=== PATIENT | female | born 1955 | race African-American/Black ===

== ENCOUNTER 2017-03-05 10:08 | Inpatient (IN) | payer OTHER ==
[~2017-03-05] VITALS: Ht 160 cm; Wt 74.8 kg
[~2017-03-05 10:08] MED LIST: AMLO10TA80 PO; CHLO25TA27 PO; METHIMAZOLE PO; POTA10TA11 PO; SPIR25TA4 PO
[2017-03-05 11:13] LABS: BASOPHILS % 1.4 % (0.0-2.0); HEMATOCRIT. 44.4 % (36.0-48.0); HEMOGLOBIN. 15.2 g/dL (12.0-16.0); LYMPHOCYTES % 21.1 % (20.0-50.0); MEAN CORPUSCULAR HEMOGLOBIN 28.8 pg (28.0-32.0); MEAN CORPUSCULAR VOLUME 84.1 fL (81.0-99.0); MEAN PLATELET VOLUME 9.2 fl (7.4-10.4); MONOCYTES % 8.5 % (2.0-8.0); PLATELET 259 x1000/uL (130-400); RED BLOOD CELL COUNT 5.28 mill/uL (4.2-5.4); RED CELL DISTRIBUTION WIDTH 14.2 % (11.6-14.6)
[2017-03-05 11:27] LABS: CARBON DIOXIDE 28 mEq/L (21-32); CHLORIDE 100 mEq/L (98-107); CREATINE KINASE 83 IU/L (26-192); ETHANOL BLOOD < 10 mg/dL; TROPONIN I < 0.02 ng/mL (0.00-0.04)
[2017-03-05] MEDS ORDERED: POTASSIUM CHLORIDE 20MEQ TABLET SR PO ONE (12:00)
[2017-03-05] MEDS ORDERED: ASPIRIN 81MG TABLET PO ONE (12:00)
[2017-03-05 15:49] LABS: CLARITY URINE CLOUDY (CLEAR); COLOR URINE YELLOW (YELLOW); GLUCOSE URINE NEGATIVE (NEGATIVE); KETONES URINE NEGATIVE (NEGATIVE); LEUKOCYTE ESTERASE URINE NEGATIVE (NEGATIVE); NITRITE URINE NEGATIVE (NEGATIVE); OCCULT BLOOD URINE NEGATIVE (NEGATIVE); PH URINE 7.5 (4.5-8.0); PROTEIN URINE NEGATIVE (NEGATIVE); SPECIFIC GRAVITY URINE 1.013 (1.005-1.030)
[2017-03-05 16:00] VITALS: BP 157/80
[2017-03-05 16:10] LABS: *AMPHETAMINES SCREEN URINE NEGATIVE (NEGATIVE); *BARBITURATES SCREEN URINE NEGATIVE (NEGATIVE); *BENZODIAZEPINES SCREEN URINE NEGATIVE (NEGATIVE); *COCAINE SCREEN URINE NEGATIVE (NEGATIVE); CANNABINOID URINE SCREEN NEGATIVE (NEGATIVE); METHADONE URINE SCREEN NEGATIVE (NEGATIVE); OPIATES URINE SCREEN NEGATIVE (NEGATIVE); PHENCYCLIDINE URINE SCREEN NEGATIVE (NEGATIVE)
[2017-03-05] MEDS ORDERED: DICL50PO5 PO (16:36)
[2017-03-05] MEDS ORDERED: TRAM50TA3 PO (16:39)
[2017-03-05] MEDS ORDERED: DEXA4TAB PO (16:39)
[2017-03-05] MEDS ORDERED: RIZA10TA26 PO (16:39)
[2017-03-05] MEDS ORDERED: ASPIRIN 325MG EC TABLET PO NR (19:45)
[2017-03-05 20:00] VITALS: BP 141/84
[2017-03-05] MEDS ORDERED: ONDANSETRON HCL 4MG/2ML VIAL IV PRN (22:45)
[2017-03-05] MEDS ORDERED: NA PHOS,M-B/NA PHOS,DI-BA ENEMA 118ML PR PRN (22:45)
[2017-03-05] MEDS ORDERED: DEXTROSE 50% WATER 50ML SYRINGE IV PRN (22:45)
[2017-03-05] MEDS ORDERED: ACETAMINOPHEN 650MG/20.3ML UDC GT PRN (22:45)
[2017-03-05] MEDS ORDERED: HYDROCODONE/ACETAMINOPHEN 5/325MG TABLET PO PRN (22:45)
[2017-03-05] MEDS ORDERED: ACETAMINOPHEN 650MG SUPP PR PRN (22:45)
[2017-03-05] MEDS ORDERED: MAGNESIUM/ALUMINUM HYDROXIDE/SIMETHICONE 30ML UDC PO PRN (22:45)
[2017-03-05] MEDS ORDERED: IPRATROPIUM/ALBUTEROL 0.5-3(2.5)MG/3ML NEB INH PRN (22:45)
[2017-03-05] MEDS ORDERED: CLONIDINE 0.1MG TABLET PO PRN (22:45)
[2017-03-05] MEDS ORDERED: ACETAMINOPHEN 325MG TABLET PO PRN (22:45)
[2017-03-06 00:15] VITALS: BP 127/70
[2017-03-06] MEDS: DIPHENHYDRAMINE 50MG/ML VIAL IV PRN ×2 (00:25→23:53)
[2017-03-06 04:00] VITALS: BP 152/89
[2017-03-06] MEDS: BLOOD SUGAR DIAGNOSTIC STRIP TEST SCH ×4 (05:55→21:00)
[2017-03-06] MEDS: SODIUM CHLORIDE 0.9% INJ 3ML FLUSH IVF SCH ×3 (05:56→21:39)
[2017-03-06 06:04] LABS: GLUCOSE URINE NEGATIVE (NEGATIVE); KETONES URINE NEGATIVE (NEGATIVE); LEUKOCYTE ESTERASE URINE NEGATIVE (NEGATIVE); NITRITE URINE NEGATIVE (NEGATIVE); OCCULT BLOOD URINE NEGATIVE (NEGATIVE); PROTEIN URINE NEGATIVE (NEGATIVE); SPECIFIC GRAVITY URINE 1.018 (1.005-1.030)
[2017-03-06 06:14] LABS: CLARITY URINE CLEAR (CLEAR); COLOR URINE YELLOW (YELLOW)
[2017-03-06 06:19] LABS: *AMPHETAMINES SCREEN URINE NEGATIVE (NEGATIVE); *BARBITURATES SCREEN URINE NEGATIVE (NEGATIVE); *BENZODIAZEPINES SCREEN URINE NEGATIVE (NEGATIVE); *COCAINE SCREEN URINE NEGATIVE (NEGATIVE); CANNABINOID URINE SCREEN NEGATIVE (NEGATIVE); METHADONE URINE SCREEN NEGATIVE (NEGATIVE); OPIATES URINE SCREEN NEGATIVE (NEGATIVE); PHENCYCLIDINE URINE SCREEN NEGATIVE (NEGATIVE)
[2017-03-06] MEDS: INSULIN LISPRO 100 UNITS/ML SUBCUT SCH ×4 (06:28→21:00)
[2017-03-06 07:51] LABS: BASOPHILS % 0.8 % (0.0-2.0); HEMATOCRIT. 40.4 % (36.0-48.0); LYMPHOCYTES % 33.9 % (20.0-50.0); MEAN CORPUSCULAR HEMOGLOBIN 29.2 pg (28.0-32.0); MEAN CORPUSCULAR VOLUME 84.1 fL (81.0-99.0); MEAN PLATELET VOLUME 9.6 fl (7.4-10.4); MONOCYTES % 11.1 % (2.0-8.0); NEUTROPHILS % 50.2 % (40.0-76.0); PLATELET 251 x1000/uL (130-400); RED CELL DISTRIBUTION WIDTH 14.2 % (11.6-14.6)
[2017-03-06 08:00] VITALS: BP 130/70
[2017-03-06 08:22] LABS: CARBON DIOXIDE 28 mEq/L (21-32); CHLORIDE 103 mEq/L (98-107); HDL CHOLESTEROL 69 mg/dL (40-59); LDL CHOLESTEROL 97 mg/dL (5-100)
[2017-03-06] MEDS: ASPIRIN 325MG EC TABLET PO SCH (08:44)
[2017-03-06 12:00] VITALS: BP 147/78
[2017-03-06] MEDS ORDERED: METHIMAZOLE 5MG TABLET PO SCH (12:00)
[2017-03-06] MEDS: POTASSIUM CHLORIDE 20MEQ TABLET SR PO SCH (12:35)
[2017-03-06 16:00] VITALS: BP 138/82
[2017-03-06] MEDS ORDERED: ATOR10TA PO (16:35)
[2017-03-06] MEDS ORDERED: ASPI-867 PO (16:35)
[2017-03-06 20:00] VITALS: BP 137/80
[2017-03-06] MEDS ORDERED: ATORVASTATIN CALCIUM 10MG TABLET PO SCH (21:00)
[2017-03-06] MEDS ORDERED: ZOLPIDEM TARTRATE 5MG TABLET PO PRN (21:45)
[2017-03-07] VITALS: BP 125/75
[2017-03-07 04:00] VITALS: BP 130/74
[2017-03-07] MEDS: SODIUM CHLORIDE 0.9% INJ 3ML FLUSH IVF SCH ×2 (06:03→14:05)
[2017-03-07] MEDS: INSULIN LISPRO 100 UNITS/ML SUBCUT SCH ×2 (06:05→12:15)
[2017-03-07] MEDS: BLOOD SUGAR DIAGNOSTIC STRIP TEST SCH ×2 (06:05→11:45)
[2017-03-07 08:00] VITALS: BP 140/80
[2017-03-07] MEDS: ASPIRIN 325MG EC TABLET PO SCH (11:45)
[2017-03-07] MEDS: POTASSIUM CHLORIDE 20MEQ TABLET SR PO SCH (11:46)
[2017-03-07 12:00] VITALS: BP 154/90
[2017-03-07 16:46] VITALS: BP 148/75
== END 2017-03-07 17:25 | disposition home or self-care (01) | DRG 66 ==
LOC: ER 10:24 → 5WST 12:08 → EDBEDREQ 12:15 → ENRESERV 13:19
PROVIDERS: ADMIT Family Medicine; ATTEND Family Medicine
DX: I63.9 Cerebral infarction, unspecified (principal); I10 Essential (primary) hypertension; E05.90 Thyrotoxicosis, unspecified without thyrotoxic crisis or storm; R73.9 Hyperglycemia, unspecified; E87.6 Hypokalemia; G43.119 Migraine with aura, intractable, without status migrainosus; E78.5 Hyperlipidemia, unspecified; Z82.49 Family history of ischemic heart disease and other diseases of the circulatory system; Z83.3 Family history of diabetes mellitus; Z79.899 Other long term (current) drug therapy; Z82.0 Family history of epilepsy and other diseases of the nervous system
CPT/HCPCS: 36415; 70450; 70551; 71010; 80053; 80061; 80305; 81001; 81003; 82550; 82962; 83036; 83735; 83880; 84443; 84484; 85025; 93005; 93306; 93880; 97162; 99285; G0482; J1200

== ENCOUNTER 2017-03-23 17:22 | Inpatient (IN) | payer OTHER ==
[~2017-03-23] VITALS: Ht 165.1 cm; Wt 80.3 kg
[~2017-03-23 17:22] MED LIST changes: +ASPI-867 PO; +ATOR10TA PO; +DEXA4TAB PO; +DICL50PO5 PO; +RIZA10TA26 PO; -SPIR25TA4 PO; +TRAM50TA3 PO
[2017-03-23 18:18] LABS: BASOPHILS % 0.9 % (0.0-2.0); HEMATOCRIT. 44.7 % (36.0-48.0); HEMOGLOBIN. 15.2 g/dL (12.0-16.0); LYMPHOCYTES % 35.7 % (20.0-50.0); MEAN CORPUSCULAR HEMOGLOBIN 29.1 pg (28.0-32.0); MEAN CORPUSCULAR VOLUME 85.6 fL (81.0-99.0); MEAN PLATELET VOLUME 9.4 fl (7.4-10.4); MONOCYTES % 9.3 % (2.0-8.0); NEUTROPHILS % 50.1 % (40.0-76.0); PLATELET 249 x1000/uL (130-400); RED BLOOD CELL COUNT 5.22 mill/uL (4.2-5.4)
[2017-03-23 18:20] LABS: CHLORIDE 106 mEq/L (98-107); PROTHROMBIN TIME 10.7 sec (9.4-11.6)
[2017-03-23 18:30] LABS: CARBON DIOXIDE 25 mEq/L (21-32); ETHANOL BLOOD < 10 mg/dL; TROPONIN I < 0.02 ng/mL (0.00-0.04)
[2017-03-23 19:18] LABS: CLARITY URINE CLEAR (CLEAR); COLOR URINE YELLOW (YELLOW); GLUCOSE URINE NEGATIVE (NEGATIVE); KETONES URINE NEGATIVE (NEGATIVE); LEUKOCYTE ESTERASE URINE NEGATIVE (NEGATIVE); NITRITE URINE NEGATIVE (NEGATIVE); OCCULT BLOOD URINE NEGATIVE (NEGATIVE); PROTEIN URINE NEGATIVE (NEGATIVE); SPECIFIC GRAVITY URINE 1.012 (1.005-1.030); UROBILINOGEN URINE 0.2 E.U./dL (0.2-1.0)
[2017-03-23 19:30] LABS: *AMPHETAMINES SCREEN URINE NEGATIVE (NEGATIVE); *BARBITURATES SCREEN URINE NEGATIVE (NEGATIVE); *BENZODIAZEPINES SCREEN URINE NEGATIVE (NEGATIVE); *COCAINE SCREEN URINE NEGATIVE (NEGATIVE); CANNABINOID URINE SCREEN NEGATIVE (NEGATIVE); METHADONE URINE SCREEN NEGATIVE (NEGATIVE); OPIATES URINE SCREEN NEGATIVE (NEGATIVE); PHENCYCLIDINE URINE SCREEN NEGATIVE (NEGATIVE)
[2017-03-23] MEDS ORDERED: DIPHENHYDRAMINE 50MG/ML VIAL IV PRN (20:30)
[2017-03-23] MEDS ORDERED: NITROGLYCERIN 0.4MG TABLET SL SL PRN (20:30)
[2017-03-23] MEDS ORDERED: GUAIFENESIN 200MG/10ML SUGAR FREE UDC PO PRN (20:30)
[2017-03-23] MEDS ORDERED: ONDANSETRON HCL 4MG/2ML VIAL IV PRN (20:30)
[2017-03-23] MEDS ORDERED: DOCUSATE SODIUM 100MG CAPSULE PO PRN (20:30)
[2017-03-23] MEDS ORDERED: MAGNESIUM/ALUMINUM HYDROXIDE/SIMETHICONE 30ML UDC PO PRN (20:30)
[2017-03-23] MEDS ORDERED: LORAZEPAM 2MG/ML CPJ IV PRN (20:30)
[2017-03-23] MEDS ORDERED: IPRATROPIUM/ALBUTEROL 0.5-3(2.5)MG/3ML NEB INH PRN (20:30)
[2017-03-23] MEDS ORDERED: CLONIDINE 0.1MG TABLET PO PRN (20:30)
[2017-03-23 20:55] LABS: T4 FREE 0.92 ng/dL (0.76-1.46)
[2017-03-23] MEDS ORDERED: ZOLPIDEM TARTRATE 5MG TABLET PO PRN (21:00)
[2017-03-23] MEDS ORDERED: NA PHOS,M-B/NA PHOS,DI-BA ENEMA 118ML PR PRN (21:00)
[2017-03-23] MEDS: FAMOTIDINE 20MG/2ML VIAL IV SCH (21:00)
[2017-03-23] MEDS ORDERED: MORPHINE SULFATE 2 MG/ML CPJ (NOT FOR IM USE) IV PRN (21:01)
[2017-03-23] MEDS ORDERED: MORPHINE SULFATE 4 MG/ML CPJ (NOT FOR IM USE) IV PRN (21:41)
[2017-03-23 22:42] LABS: TROPONIN I < 0.02 ng/mL (0.00-0.04)
[2017-03-23 22:47] LABS: CREATINE KINASE 115 IU/L (26-192)
[2017-03-24] VITALS (12 sets, daily range): BP systolic 132–174; BP diastolic 76–120
[2017-03-24] MEDS: CLOPIDOGREL 75MG TABLET PO SCH (09:41)
[2017-03-24] MEDS: ENOXAPARIN 40MG/0.4ML SYR SUBCUT SCH (09:44)
[2017-03-24] MEDS: FAMOTIDINE 20MG/2ML VIAL IV SCH ×2 (09:44→20:50)
[2017-03-24 10:35] LABS: CREATINE KINASE 86 IU/L (26-192); CREATINE KINASE MB FRACTION 0.7 ng/mL (0.5-3.6); TROPONIN I < 0.02 ng/mL (0.00-0.04)
[2017-03-24] MEDS: ACETAMINOPHEN 325MG TABLET PO PRN (11:08)
[2017-03-24 14:44] LABS: T4 FREE 0.95 ng/dL (0.76-1.46)
[2017-03-24 15:00] LABS: FOLIC ACID (FOLATE) SERUM > 20.00 ng/mL (>5.38); VITAMIN B12 SERUM 819 pg/mL (211-911)
[2017-03-24] MEDS: TRAMADOL 50MG TABLET PO PRN (18:07)
[2017-03-24] MEDS: ATORVASTATIN CALCIUM 20MG TABLET PO SCH (20:50)
[2017-03-24] MEDS ORDERED: ATORVASTATIN CALCIUM 10MG TABLET PO SCH (21:00)
[2017-03-25] VITALS (14 sets, daily range): BP systolic 106–146; BP diastolic 60–90
[2017-03-25] MEDS: CLOPIDOGREL 75MG TABLET PO SCH (08:15)
[2017-03-25] MEDS: ENOXAPARIN 40MG/0.4ML SYR SUBCUT SCH (08:15)
[2017-03-25] MEDS: TRAMADOL 50MG TABLET PO PRN ×2 (08:16→15:59)
[2017-03-25] MEDS: FAMOTIDINE 20MG/2ML VIAL IV SCH ×2 (08:28→20:32)
[2017-03-25 10:05] LABS: BASOPHILS % 1.2 % (0.0-2.0); EOSINOPHILS % 6.8 % (0.0-5.0); HEMATOCRIT. 42.9 % (36.0-48.0); HEMOGLOBIN. 14.5 g/dL (12.0-16.0); LYMPHOCYTES % 40.3 % (20.0-50.0); MEAN CORPUSCULAR HEMOGLOBIN 29.1 pg (28.0-32.0); MEAN PLATELET VOLUME 9.2 fl (7.4-10.4); NEUTROPHILS % 42.7 % (40.0-76.0); PLATELET 232 x1000/uL (130-400); RED BLOOD CELL COUNT 4.99 mill/uL (4.2-5.4); RED CELL DISTRIBUTION WIDTH 14.1 % (11.6-14.6)
[2017-03-25 10:17] LABS: CARBON DIOXIDE 26 mEq/L (21-32); CHLORIDE 106 mEq/L (98-107)
[2017-03-25] MEDS: ATORVASTATIN CALCIUM 20MG TABLET PO SCH (20:32)
[2017-03-25] MEDS: ACETAMINOPHEN 325MG TABLET PO PRN (22:42)
[2017-03-26] VITALS (9 sets, daily range): BP systolic 116–150; BP diastolic 55–89
[2017-03-26] MEDS: ENOXAPARIN 40MG/0.4ML SYR SUBCUT SCH (09:49)
[2017-03-26] MEDS: FAMOTIDINE 20MG/2ML VIAL IV SCH (09:49)
[2017-03-26] MEDS: CLOPIDOGREL 75MG TABLET PO SCH (09:49)
[2017-03-26] MEDS ORDERED: MORPHINE SULFATE 2 MG/ML CPJ (NOT FOR IM USE) IV PRN (10:15)
[2017-03-29 04:17] LABS: ANTI-CARDIOLIPIN AB IGA < 9 APL U/mL (0-11); ANTI-CARDIOLIPIN AB IGG < 9 GPL U/mL (0-14); ANTI-CARDIOLIPIN AB IGM < 9 MPL U/mL (0-12)
[2017-03-30 06:18] LABS: DILUTE RUSSELL VIPER VENOM TME 32.6 sec (0.0-47.0)
== END 2017-03-26 14:05 | disposition home or self-care (01) | DRG 65 ==
LOC: ER 17:45 → 5EST 18:28 → EDBEDREQ 18:31 → SUPCPDRO 18:59 → ENRESERV 03-24 02:39
PROVIDERS: ADMIT Internal Medicine; ATTEND Internal Medicine
DX: I63.9 Cerebral infarction, unspecified (principal); G81.94 Hemiplegia, unspecified affecting left nondominant side; E05.90 Thyrotoxicosis, unspecified without thyrotoxic crisis or storm; G43.909 Migraine, unspecified, not intractable, without status migrainosus; E78.00 Pure hypercholesterolemia, unspecified; R26.9 Unspecified abnormalities of gait and mobility; I10 Essential (primary) hypertension; Z79.02 Long term (current) use of antithrombotics/antiplatelets; Z82.3 Family history of stroke; Z82.49 Family history of ischemic heart disease and other diseases of the circulatory system
CPT/HCPCS: 36415; 70450; 70544; 70551; 71010; 80048; 80053; 80061; 80305; 81003; 81400; 81403; 81407; 81479; 82550; 82553; 82607; 82746; 82962; 83036; 84439; 84443; 84481; 84484; 85025; 85300; 85303; 85306; 85610; 85613; 86147; 93005; 93970; 97162; 97165; 99291; G0482; J1650; J3490

== ENCOUNTER 2017-06-30 13:15 | Emergency (ER) | payer OTHER ==
[~2017-06-30] VITALS: Ht 162.6 cm; Wt 77.0 kg
[~2017-06-30 13:15] MED LIST changes: -ASPI-867 PO
[2017-06-30 15:04] LABS: BASOPHILS % 0.7 % (0.0-2.0); EOSINOPHILS % 1.3 % (0.0-5.0); HEMATOCRIT. 43.5 % (36.0-48.0); HEMOGLOBIN. 14.5 g/dL (12.0-16.0); LYMPHOCYTES % 22.3 % (20.0-50.0); MEAN CORPUSCULAR VOLUME 87.2 fL (81.0-99.0); MEAN PLATELET VOLUME 9.3 fl (7.4-10.4); MONOCYTES % 10.4 % (2.0-8.0); NEUTROPHILS % 65.3 % (40.0-76.0); PLATELET 251 x1000/uL (130-400); RED BLOOD CELL COUNT 4.99 mill/uL (4.2-5.4)
[2017-06-30 15:10] LABS: CHLORIDE 109 mEq/L (98-107)
[2017-06-30 15:11] LABS: PROTHROMBIN TIME 10.8 sec (9.4-11.6)
[2017-06-30 15:19] LABS: CARBON DIOXIDE 26 mEq/L (21-32)
[2017-06-30 20:30] VITALS: BP 152/67
== END 2017-06-30 20:30 | disposition home or self-care (01) ==
LOC: ER 14:11
DX: G43.909 Migraine, unspecified, not intractable, without status migrainosus (principal); R20.0 Anesthesia of skin; R79.1 Abnormal coagulation profile; I10 Essential (primary) hypertension; E05.90 Thyrotoxicosis, unspecified without thyrotoxic crisis or storm; Z86.73 Personal history of transient ischemic attack (TIA), and cerebral infarction without residual deficits
CPT/HCPCS: 36415; 70450; 70551; 80053; 85025; 85610; 93005; 99285